=== PATIENT | male | born 1955 | race Caucasian/White ===

== ENCOUNTER 2018-07-13 01:00 | Emergency (ER) | payer BC ==
[~2018-07-13] VITALS: Ht 175.3 cm; Wt 77.3 kg
[2018-07-13 01:06] VITALS: BP 164/83; TEMP 98.3
[2018-07-13] MEDS ORDERED: ZITHROMAX 250M250 MG PO (02:48)
[2018-07-13] MEDS ORDERED: PREDNISONE20 MG PO (02:48)
[2018-07-13 03:25] VITALS: PULSE 86
== END 2018-07-13 03:26 | disposition home or self-care (01) ==
LOC: COL.ER 01:00
DX: J18.1 Lobar pneumonia, unspecified organism (principal); I10 Essential (primary) hypertension; J45.909 Unspecified asthma, uncomplicated; Z87.891 Personal history of nicotine dependence
CPT/HCPCS: J7512